=== PATIENT | female | born 1985 | race Hispanic/Latino ===

== ENCOUNTER 2019-11-13 05:29 | Day surgery (SDC) | payer OTHER ==
[2019-11-12 14:40] LABS: BASOPHILS % (AUTO) 0.3 % (0.0-5.0); EOSINOPHILS % (AUTO) 1.6 % (0.0-8.0); HEMATOCRIT 39.5 % (36-48); LYMPHOCYTES % (AUTO) 30.8 % (21.0-51.0); MEAN CORPUSCULAR HEMOGLOBIN 28.3 pg (27.0-33.0); MEAN CORPUSCULAR HGB CONC 32.7 g/dL (32.0-36.0); MEAN CORPUSCULAR VOLUME 86.6 fL (79-99); NEUTROPHILS % (AUTO) 61.2 % (40.0-77.0); PLATELET COUNT (AUTO) 347 K/uL (130-400); RED BLOOD CELL COUNT(AUTO) 4.56 MIL/uL (4.00-5.50); WHITE BLOOD COUNT (AUTO) 7.6 K/uL (4.8-10.8)
[2019-11-12 15:20] VITALS: BP 127/66
[~2019-11-13] VITALS: Ht 160 cm; Wt 69.1 kg
[2019-11-13] VITALS (14 sets, daily range): BP systolic 126–148; BP diastolic 73–87
[~2019-11-13 05:29] MED LIST: DEPO-PROVERA IM; MULT-1367 PO
[2019-11-13] MEDS ORDERED: LACTATED RINGERS 1000ML 1,000 ML IV ONE (05:54)
--- NOTE | 2019-11-13 05:55 | NUR ---
PREOP PT ARRIVED AMBULATORY IN NO DISTRESS. PT CONNECTED TO MONITOR.
[2019-11-13] MEDS ORDERED: CEFAZOLIN SODIUM 1 GM VIAL IVP SCH (06:00)
[2019-11-13] MEDS ORDERED: STRONG IODINE SOLN 14ML BOTTLE ONE (06:19)
[2019-11-13] MEDS ORDERED: PROPOFOL 10 MG/ML 20ML VIAL IV ONE (06:28)
[2019-11-13] MEDS ORDERED: SUCCINYLCHOLINE 200MG/10ML SYR ONE (06:28)
[2019-11-13] MEDS ORDERED: LIDOCAINE PF 2% 5ML ABBOJECT ONE (06:28)
[2019-11-13] MEDS ORDERED: ONDANSETRON HCL 4 MG/2 ML VIAL ONE (06:28)
[2019-11-13] MEDS ORDERED: ROCURONIUM 10MG/1ML SYR 10 MG/ML ML ONE (06:29)
[2019-11-13] MEDS ORDERED: MIDAZOLAM HCL 1 MG/ML 2ML VIAL ONE (06:29)
[2019-11-13] MEDS ORDERED: FENTANYL CITRATE PF 50 MCG/1 ML 2ML VIAL ONE (06:29)
--- NOTE | 2019-11-13 06:30 | NUR ---
transfer pt taken to or via stretcher. pt in no distress
[2019-11-13] MEDS ORDERED: KETOROLAC TROMETHAMINE 30MG/ML ONE (07:15)
--- NOTE | 2019-11-13 07:55 | NUR ---
POST OP RECEIVED REPORT FROM MANJIT APARICIO RN FROM PACU. PT IN NO DISTRESS. PT HAS PERIPAD WITH SCANT AMT OF BRIGHT RED BLOOD.
--- NOTE | 2019-11-13 08:25 | NUR ---
DISCHARGE PT AND SIGNIFICANT OTHER GIVEN SCRIPT AND DISCHARGE INSTRUCTIONS TOO. PT TAKEN OUT VIA W/C IN NO DISTRESS.
== END 2019-11-13 08:25 | disposition home or self-care (01) ==
LOC: DAH 05:29
PROVIDERS: ATTEND Obstetrics & Gynecology
DX: N87.1 Moderate cervical dysplasia (principal); R87.810 Cervical high risk human papillomavirus (HPV) DNA test positive
CPT/HCPCS: 36415; 57520; 84703; 85025; 86850; 86900; 86901; A4213; A4215; A4221; A4222; A4223; A4351; A4556; A4606; A4663; J0330; J0690; J1885; J2001; J2250; J2405; J2704; J3010; J7030; J7120

== ENCOUNTER 2020-04-15 08:33 | Emergency (ER) | payer OTHER ==
[2020-04-15 09:03] LABS: BASOPHILS % (AUTO) 0.2 % (0.0-5.0); LYMPHOCYTES % (AUTO) 31.2 % (21.0-51.0); MEAN CORPUSCULAR HEMOGLOBIN 28.1 pg (27.0-33.0); MEAN CORPUSCULAR HGB CONC 32.7 g/dL (32.0-36.0); MEAN CORPUSCULAR VOLUME 86.1 fL (79-99); MONOCYTES % (AUTO) 6.5 % (3.0-13.0); NEUTROPHILS % (AUTO) 59.8 % (40.0-77.0); PLATELET COUNT (AUTO) 431 K/uL (130-400); RED BLOOD CELL COUNT(AUTO) 3.02 MIL/uL (4.00-5.50); RED CELL DISTRIBUTION WIDTH 12.7 % (11.0-15.5); WHITE BLOOD COUNT (AUTO) 6.4 K/uL (4.8-10.8)
[2020-04-15 09:12] LABS: CREATININE 0.8 mg/dL (0.5-1.5); POTASSIUM 3.1 mmol/L (3.5-5.1)
[2020-04-15 09:13] LABS: APPEARANCE,URINE Clear (CLEAR); BILIRUBIN,URINE Negative (NEGATIVE); COLOR,URINE Yellow (YELLOW); GLUCOSE, URINE (UA) Negative (NEGATIVE); KETONES,URINE Trace mg/dL (NEGATIVE); LEUKOCYTE ESTERASE ,URINE Negative (NEGATIVE); NITRATE,URINE Negative (NEGATIVE); OCCULT BLOOD,URINE Nonhemolyzed Trace (NEGATIVE); PH,URINE 5.5 (5.0-8.0); PROTEIN,URINE Negative (NEGATIVE); UROBILINOGEN,URINE 0.2 mg/dL (0.2-1.0)
[2020-04-15 09:19] LABS: BACTERIA,URINE Rare /HPF (None Seen); RBC,URINE 0-1 /HPF (0-1); SQUAMOUS EPITHELIAL CELL,UR Rare /HPF (0-2); WBC,URINE 0-1 /HPF (0-1)
[2020-04-15 09:20] LABS: INR 0.94 (0.85-1.15); PARTIAL THROMBOPLASTIN TIME 24.8 SEC (26.3-35.5); PROTHROMBIN TIME 10.2 SEC (9.6-11.6)
== END 2020-04-15 11:44 | disposition home or self-care (01) ==
LOC: EDH 08:33
DX: N93.9 Abnormal uterine and vaginal bleeding, unspecified (principal); D62 Acute posthemorrhagic anemia; Z98.890 Other specified postprocedural states
CPT/HCPCS: 36415; 76856; 80048; 81001; 84702; 85025; 85610; 85730; 93005

== ENCOUNTER 2020-06-17 07:30 | Inpatient (IN) | payer OTHER ==
[~2020-06-17] VITALS: Ht 157.5 cm; Wt 69.6 kg
[~2020-06-17 07:30] MED LIST changes: -DEPO-PROVERA IM
[2020-07-05 16:45] VITALS: BP 119/62
[2020-07-05 16:48] LABS: BASOPHILS % (AUTO) 0.3 % (0.0-5.0); EOSINOPHILS % (AUTO) 1.8 % (0.0-8.0); HEMATOCRIT 38.4 % (36-48); LYMPHOCYTES % (AUTO) 29.1 % (21.0-51.0); MEAN CORPUSCULAR HEMOGLOBIN 26.2 pg (27.0-33.0); MEAN CORPUSCULAR HGB CONC 31.5 g/dL (32.0-36.0); MEAN CORPUSCULAR VOLUME 83.3 fL (79-99); MONOCYTES % (AUTO) 5.7 % (3.0-13.0); PLATELET COUNT (AUTO) 345 K/uL (130-400); RED BLOOD CELL COUNT(AUTO) 4.61 MIL/uL (4.00-5.50); RED CELL DISTRIBUTION WIDTH 13.7 % (11.0-15.5); WHITE BLOOD COUNT (AUTO) 7.3 K/uL (4.8-10.8)
[2020-07-08] VITALS (23 sets, daily range): BP systolic 124–147; BP diastolic 55–98
[2020-07-08] MEDS ORDERED: CEFAZOLIN SODIUM 1 GM VIAL ONE (05:44)
[2020-07-08] MEDS ORDERED: MIDAZOLAM HCL 1 MG/ML 2ML VIAL ONE ×2 (06:28→06:32)
[2020-07-08] MEDS ORDERED: SUCCINYLCHOLINE 200MG/10ML SYR ONE (06:32)
[2020-07-08] MEDS ORDERED: LIDOCAINE PF 2% 5ML ABBOJECT ONE (06:32)
[2020-07-08] MEDS ORDERED: ONDANSETRON HCL 4 MG/2 ML VIAL ONE (06:32)
[2020-07-08] MEDS ORDERED: FENTANYL CITRATE PF 50 MCG/1 ML 2ML VIAL ONE (06:32)
[2020-07-08] MEDS ORDERED: DEXAMETHASONE SOD PHOSPHATE 10MG/ML 1ML VIAL ONE (06:32)
[2020-07-08] MEDS ORDERED: PROPOFOL 10 MG/ML 20ML VIAL IV ONE (06:32)
[2020-07-08] MEDS ORDERED: ROCURONIUM 10MG/1ML SYR 10 MG/ML ML ONE (06:33)
[2020-07-08] MEDS ORDERED: MEPERIDINE-PF 25 MG/ML SYG ONE ×3 (07:52→08:53)
[2020-07-08] MEDS ORDERED: LACTATED RINGERS 1000ML 1,000 ML IV SCH (08:00)
[2020-07-08] MEDS ORDERED: CEFAZOLIN SODIUM 1 GM VIAL IVP ONE (08:00)
[2020-07-08] MEDS ORDERED: MEPERIDINE-PF 75 MG/ML SYG IM PRN (09:45)
[2020-07-08] MEDS ORDERED: PROMETHAZINE HCL 25 MG/ML 1ML AMPULE IM PRN ×2 (09:45)
[2020-07-08] MEDS ORDERED: BISACODYL 10 MG SUPP.RECT RC PRN (09:45)
[2020-07-08] MEDS: SIMETHICONE 80 MG TAB.CHEW PO PRN ×2 (10:02→21:21)
[2020-07-08] MEDS: ACETAMINOPHEN-CODEINE 300/30MG TAB PO PRN ×3 (10:03→23:01)
[2020-07-08] MEDS: DOCUSATE SODIUM 100 MG CAP PO PRN ×2 (10:03→21:21)
[2020-07-08] MEDS: DEXTROSE 5 %-0.45 % NACL 1,000 ML IV PRN ×2 (10:10→17:29)
[2020-07-08] MEDS: CEFAZOLIN SODIUM 1 GM VIAL IVP SCH ×2 (13:44→22:30)
[2020-07-09] MEDS: DEXTROSE 5 %-0.45 % NACL 1,000 ML IV PRN (01:54)
[2020-07-09] MEDS: IBUPROFEN 600 MG TABLET PO PRN ×2 (02:04→08:58)
[2020-07-09 03:05] VITALS: BP 117/63
[2020-07-09] MEDS: ACETAMINOPHEN-CODEINE 300/30MG TAB PO PRN (05:31)
[2020-07-09 06:55] LABS: HEMATOCRIT 33.6 % (36-48); MEAN CORPUSCULAR HEMOGLOBIN 25.9 pg (27.0-33.0); MEAN CORPUSCULAR HGB CONC 31.3 g/dL (32.0-36.0); MEAN CORPUSCULAR VOLUME 82.8 fL (79-99); RED BLOOD CELL COUNT(AUTO) 4.06 MIL/uL (4.00-5.50); RED CELL DISTRIBUTION WIDTH 14.2 % (11.0-15.5); WHITE BLOOD COUNT (AUTO) 9.6 K/uL (4.8-10.8)
[2020-07-09 07:40] VITALS: BP 116/72
[2020-07-09] MEDS: DOCUSATE SODIUM 100 MG CAP PO PRN (08:56)
== END 2020-07-09 11:30 | disposition home or self-care (01) | DRG 743 ==
LOC: EDSTATUS 07-05 15:00 → DAHIP 07-08 05:33 → WSH 07-08 09:20
PROVIDERS: ADMIT Obstetrics & Gynecology; ATTEND Obstetrics & Gynecology
PROC: 0UT90ZZ Resection of Uterus, Open Approach (ICD-10-PCS; principal; 2020-07-08 06:30)
DX: N92.0 Excessive and frequent menstruation with regular cycle (principal); N87.9 Dysplasia of cervix uteri, unspecified; D64.9 Anemia, unspecified; Z20.822 Contact with and (suspected) exposure to COVID-19
CPT/HCPCS: 36415; 84703; 85025; 85027; 86850; 86900; 86901; A4344; G0378; J0330; J0690; J1100; J2001; J2175; J2250; J2405; J2550; J2704; J3010; J7030; U0003